=== PATIENT | male | born 1975 | race Caucasian/White ===

== ENCOUNTER 2017-08-04 21:19 | Emergency (ER) | payer BC ==
[2017-08-04 21:38] VITALS: BP 143/85
[2017-08-04] MEDS ORDERED: Tetracaine 0.5% OPTH.SOL 4 ML* 1 DROP BTL LEFT EYE ONE (21:43)
[2017-08-04] MEDS ORDERED: Fluorescein Sod TOPICAL 0.6* 0.6 MG TEST OPHTHALMIC ONE (21:43)
[2017-08-04] MEDS ORDERED: BSS OPTH.SOL* BTL OPHTHALMIC ONE (21:43)
[2017-08-04] MEDS ORDERED: Erythromycin OPTH OINT* APPLIC OINT LEFT EYE ONE (21:56)
--- NOTE | 2017-08-05 22:23 | UC ---
Smith Rosas Gabriel, scribed for Fabien English MD on 08/04/17 at 2149 . Eye Complaint HPI - HPI Summary HPI Summary: This patient is a 42 year old M presenting to [facility] [place] with a chief complaint of left eye irritation since today around 1500. The patient rates the pain 6/10 in severity. Patient reports eye soreness and increased tearing. Pt denies vision loss, fever, and chills. While at work the patient got sawdust in his eye. - History of Current Complaint Chief Complaint: UCEye Stated Complaint: eye IRRITATION Time Seen by Provider: 08/04/17 21:39 Hx Obtained From: Patient Onset/Duration: Lasting Hours, Still Present Timing: Constant Severity Initially: Moderate Severity Currently: Moderate Pain Intensity: 6 Pain Scale Used: 0-10 Numeric Location of Injury: Conjunctiva, Sclera Associated Signs And Symptoms: Positive: Negative - vision loss, Drainage (Clear ), Swelling - Allergies/Home Medications Allergies/Adverse Reactions: Allergies Allergy/AdvReac Type Severity Reaction Status Date / Time No Known Allergies Allergy Verified 08/04/17 21:32 Home Medications: Home Medications Cholecalciferol [Vitamin D] 1,000 unit PO DAILY 08/04/17 [History Confirmed 07/21] PMH/Surg Hx/FS Hx/Imm Hx Previously Healthy: Yes - Surgical History Surgical History: None Surgery Procedure, Year, and Place: lipoma removed from forehead - Family History Known Family History: Positive: Cardiac Disease, Diabetes Negative: Hypertension, Renal Disease, Respiratory Disease, Seizure Disorder - Social History Occupation: Employed Full-time Lives: With Family Alcohol Use: Occasionally Substance Use Type: None Smoking Status (MU): Never Smoked Tobacco Type: Smokeless Tobacco - Immunization History Most Recent Tetanus Shot: unsure Review of Systems Constitutional: Negative - fever Eyes: Drainage, Eye Redness, Other - sore All Other Systems Reviewed And Are Negative: Yes Physical Exam Triage Information Reviewed: Yes Vital Signs: Initial Vital Signs Temp 98.7 F 08/04/17 21:33 Pulse 76 08/04/17 21:33 Resp 18 08/04/17 21:33 BP 143/85 08/04/17 21:33 Pulse Ox 100 08/04/17 21:33 - Additional Comments VITAL SIGNS: Reviewed. GENERAL: Patient is a well developed and nourished M who is lying comfortable in the stretcher. Patient is not in any acute respiratory distress. HEAD AND FACE: Normocephalic EYES: PERRLA, EOMI x 2. Conjunctival irritation slight swelling in the left side of the cornea, normal visual acuity EARS: Hearing grossly intact. MOUTH: Oropharynx within normal limits. NECK: Supple, trachea is midline, no adenopathy, no JVD, no carotid bruit. CHEST: Symmetric, no tenderness at palpation LUNGS: Clear to auscultation bilaterally. No wheezing or crackles. CVS: Regular rate and rhythm, S1 and S2 present, no murmurs or gallops appreciated. ABDOMEN: Soft, non-tender. Bowel sounds are normal. No abdominal abnormal pulsations. EXTREMITIES: Full ROM in all major joints, no edema, no cyanosis or clubbing. NEURO: Alert and oriented x 3. No acute neurological deficits. Speech is normal and follows commands. SKIN: Dry and warm Eye Complaint Course/Dx - Course Course Of Treatment: This patient is a 42 year old M presenting to [facility] [place] with a chief complaint of left eye irritation since today around 1500. The patient rates the pain 6/10 in severity. Patient reports eye soreness and increased tearing. Pt denies vision loss. While at work the patient got sawdust in his eye. No fluorescein uptake on the left side of the sclera in the left eye he was urged to return if he has vision loss of increased pain. There were no foreign bodies. Pt was instructed to return to the urgent care or go to ER immediately if any of the symptoms return or worsens. Plan of care was discussed with the patient and pt understands and agrees. All questions were answered to patient satisfaction. There were no further complaints or concerns. . Patient will be discharged with a diagnoses of a sclera abrasion and follow up from leather flesher. The patient is agreeable with this plan. - Differential Dx/Diagnosis Provider Diagnoses: sclera abrasion Discharge - Discharge Plan Condition: Stable Disposition: HOME Patient Education Materials: Corneal Abrasion (DC) Referrals: Aba Kellogg DO [Primary Care Provider] - Additional Instructions: Apply medication as indicated. (TID) until seen by leather flesher. The documentation as recorded by the Smith fraga Gabriel accurately reflects the service I personally performed and the decisions made by , Fabien English MD.
== END 2017-08-04 22:10 | disposition home or self-care (01) ==
LOC: UCEAST 21:19
DX: T15.82XA Foreign body in other and multiple parts of external eye, left eye, initial encounter (principal); X58.XXXA Exposure to other specified factors, initial encounter; Y92.9 Unspecified place or not applicable
CPT/HCPCS: 99212; A9270-GY; G0463